=== PATIENT | male | born 1980 | race Two or more races ===

== ENCOUNTER 2016-08-16 17:53 | Emergency (ER) | payer SELFPAY ==
[~2016-08-16] VITALS: Ht 167.6 cm; Wt 65.8 kg
[2016-08-16 20:24] VITALS: BP 114/62
--- NOTE | 2016-08-16 21:23 | Emergency Room Report ---
History of Present Illness General Chief Complaint: Alcohol Intoxication Source: Patient, EMS (KARLOS SHEARER D.O.) Present Illness HPI Patient presents by paramedics for report of altered mental status patient was found questionably with the paramedics report inebriated on someone's front lawn Upon arrival the patient was somewhat awake and verbal however became fairly somnolent There was no reports of any trauma at the scene patient himself cannot provide much history this does limit the history of present illness There was no reports of vomiting or diarrhea (KARLOS SHEARER D.O.) Allergies: Coded Allergies: No Known Allergies (Unverified , 08/16/16) Patient History Past Medical History: see triage record Pertinent Family History: none Reviewed Nursing Documentation: PMH: Agreed, PSxH: Agreed (KARLOS SHEARER D.O.) Nursing Documentation-PMH Past Medical History Deferred: Pt Cognitively Impaired (KARLOS SHEARER D.O.) Review of Systems All Other Systems: limited - Other than the ones mentioned in the history of present illness all others are reviewed however they do stay limited due to the patient's mental status (KARLOS SHEARER D.O.) Physical Exam Vital Signs Date Time Temp Pulse Resp B/P Pulse Ox O2 Delivery O2 Flow Rate FiO2 08/16/16 17:44 97.9 86 18 110/60 96 Room Air Sp02 EP Interpretation: reviewed, normal General Appearance: no apparent distress Head: normocephalic, atraumatic Eyes: bilateral eye PERRL ENT: normal pharynx, no angioedema Neck: supple Respiratory: lungs clear Cardiovascular #1: regular rate, rhythm, no edema, no gallop Gastrointestinal: non tender, soft Musculoskeletal: other - Patient does not follow commands however no obvious focal deficit Neurologic: responsive - To physical stimuli Skin: no rash - However appears mildly disheveled Lymphatic: no adenopathy (KARLOS SHEARER D.O.) Medical Decision Making Diagnostic Impression: Primary Impression: Acute alcoholic intoxication Qualified Codes: F10.920 - Alcohol use, unspecified with intoxication, uncomplicated ER Course Given the patient's initial presentation multiple differentials considered Including but not limited to neurological, metabolic, infectious After prolonged observation in the emergency room Patient did have CT head obtained And is pending further sobering affect (KARLOS SHEARER D.O.) ER Course Patient presents with alcohol intoxication. No trauma. CT negative. This patient was signed out to me. CT is unremarkable. We'll discharge home once more clinically sober. He's not suicidal or homicidal. No criteria for 5150. No withdrawal symptoms. (VIOLETA SLATER M.D.) Last Vital Signs Date Time Temp Pulse Resp B/P Pulse Ox O2 Delivery O2 Flow Rate FiO2 08/16/16 20:24 97.9 84 18 114/62 96 Room Air (KARLOS SHEARER D.O.) Status: improved (VIOLETA SLATER M.D.) Disposition: HOME, SELF-CARE Condition: Stable Referrals: NOT CHOSEN IPA/,REFERRING (PCP) Patient Instructions: Alcohol Intoxication, [id number] Additional Instructions: Abstain from alcohol. Followup your DrDayne in 2-3 days. Return if worse. KARLOS SHEARER D.O. August 16, 2016 21:23 VIOLETA SLATER M.D. August 16, 2016 23:17
[2016-08-17 00:10] VITALS: BP 122/68
[2016-08-17 03:00] VITALS: BP 113/69
[2016-08-17 05:12] VITALS: BP 113/69
--- NOTE | 2016-08-17 10:23 | Diagnostic Imaging Report ---
Indications: Altered mental status altered level of consciousness Technique: Spiral acquisitions obtained through the brain. Angled axial and coronal 5 x 5 mm slices were reconstructed. Total dose length product 1424 mGycm. CTDI vol(s) 70 mGy. Dose reduction achieved using automated exposure control Comparison: None Findings: No acute hemorrhage or edema. No mass effect or midline shift. Normal size ventricles and extra-axial CSF spaces. Parenchymal calcifications are seen in the right caudate head, the left parasagittal frontal lobe, and the left thalamus. Normal uribe-white differentiation. Intact calvarium. Visualized orbits and sinuses are unremarkable. There may be a small left frontal scalp contusion. Impression: Negative for acute intracranial bleed or mass effect Multiple parenchymal calcifications, likely old neurocysticercosis This agrees with the preliminary interpretation provided overnight by Dr. Mccabe The CT scanner at [facility] is accredited by the [employer] and the scans are performed using protocols designed to limit radiation exposure to as low as reasonably achievable to attain images of sufficient resolution adequate for diagnostic evaluation.
== END 2016-08-17 05:16 | disposition home or self-care (01) ==
LOC: EDBD 17:53 → EMR 18:30
DX: F10.129 Alcohol abuse with intoxication, unspecified (principal); R41.82 Altered mental status, unspecified
CPT/HCPCS: 70450; 99284